=== PATIENT | female | born 1965 | race Caucasian/White ===

== ENCOUNTER 2024-01-16 09:30 | Emergency (ER) | payer MEDICAID, OTHER ==
[~2024-01-16] VITALS: Ht 157.5 cm; Wt 86.0 kg
[2024-01-16] MEDS ORDERED: TOPI-21 PO ×2 (11:16)
[2024-01-16] MEDS ORDERED: TRAZ1TAB10 PO (11:16)
[2024-01-16] MEDS ORDERED: PARO30TA3 PO (11:16)
[2024-01-16] MEDS ORDERED: GABA-284 PO (11:16)
[2024-01-16 11:42] VITALS: BP 122/73; TEMP 97.1; O2SAT 98
== END 2024-01-16 11:51 | disposition home or self-care (01) ==
LOC: M ED 09:30
DX: Z76.0 Encounter for issue of repeat prescription (principal); E66.9 Obesity, unspecified; G47.00 Insomnia, unspecified; F41.9 Anxiety disorder, unspecified; F32.A Depression, unspecified

== ENCOUNTER 2024-01-24 12:24 | Emergency (ER) | payer MEDICAID, OTHER, SELFPAY ==
[~2024-01-24] VITALS: Ht 157.5 cm; Wt 86.4 kg
[~2024-01-24 12:24] MED LIST: GABA-284 PO; PARO30TA3 PO; TOPI-21 PO; TRAZ1TAB10 PO
[2024-01-24] MEDS ORDERED: TRAZ-252 PO (14:25)
[2024-01-24] MEDS ORDERED: PARO30TA3 PO (14:25)
[2024-01-24] MEDS ORDERED: TOPA50TA8 PO (14:25)
[2024-01-24] MEDS ORDERED: GABA-284 PO (14:25)
[2024-01-24 14:33] VITALS: BP 129/87; TEMP 97; O2SAT 99
== END 2024-01-24 14:36 | disposition home or self-care (01) ==
LOC: M ED 12:24
DX: Z76.0 Encounter for issue of repeat prescription (principal); F41.9 Anxiety disorder, unspecified; F32.A Depression, unspecified; F17.200 Nicotine dependence, unspecified, uncomplicated; Z79.899 Other long term (current) drug therapy

== ENCOUNTER → 2024-02-25 | Outpatient (REF) | payer OTHER ==
[~2024-02-25] MED LIST changes: +TOPA50TA8 PO; +TRAZ-252 PO
[2024-02-25 13:46] LABS: Trichomonas vaginalis (AMP) NOT DETECTED (NEGATIVE)
[2024-02-25 14:10] LABS: GC DNA AMPLIFICATION NEGATIVE (NEGATIVE)
[2024-02-25 18:54] LABS: ALBUMIN 3.5 G/DL (3.2-5.2); ALKALINE PHOSPHATASE 83 U/L (46-116); ALT/SGPT 21 U/L (7.0-40); AST/SGOT 11 U/L (<34); BILIRUBIN,TOTAL 0.3 MG/DL (0.3-1.2); BLOOD UREA NITROGEN 17 MG/DL (9-23); CARBON DIOXIDE LEVEL 24 MMOL/L (20-31); CHLORIDE LEVEL 109 MMOL/L (98-107); CHOLESTEROL LEVEL 247 MG/DL (<200); CHOLESTEROL RISK RATIO 3.91 (<5); CREATININE FOR GFR 0.88 MG/DL (0.55-1.30); GLOMERULAR FILTRATION RATE > 60.0 (>45); GLUCOSE, FASTING 84 MG/DL (74-106); HDL CHOLESTEROL 63.1 MG/DL (>40); LDL CHOLESTEROL 159.7 MG/DL (<100); NON-HDL-C 183.9 MG/DL; POTASSIUM SERUM 4.6 MMOL/L (3.5-5.1); SODIUM LEVEL 139 MMOL/L (136-145); THYROID STIMULATING HORMONE 2.342 uIU/ML (0.55-4.78); TOTAL 25(OH) VITAMIN D 18.9 NG/ML (20.0-100.0); TOTAL PROTEIN 6.8 G/DL (5.7-8.2); TRIGLYCERIDES LEVEL 121 MG/DL (<150)
[2024-02-25 19:00] LABS: HEMOGLOBIN A1c 5.1 % (4.0-6.0)
== END ==
LOC: M LAB REF 11:39
PROVIDERS: ATTEND Physician Assistant
DX: Z11.9 Encounter for screening for infectious and parasitic diseases, unspecified (principal); E66.9 Obesity, unspecified

== ENCOUNTER → 2024-04-04 | Outpatient (CLI) | payer OTHER | LOC: M RAD 09:31 | PROVIDERS: ATTEND Physician Assistant | DX: M25.561 Pain in right knee (principal) ==

== ENCOUNTER → 2024-05-08 | Outpatient (CLI) | payer OTHER | LOC: M RAD 14:26 | PROVIDERS: ATTEND Physician Assistant | DX: G43.909 Migraine, unspecified, not intractable, without status migrainosus (principal); R94.02 Abnormal brain scan ==

== ENCOUNTER → 2024-05-29 | Outpatient (CLI) | payer OTHER | LOC: M RAD 10:35 | PROVIDERS: ATTEND Physician Assistant | DX: N94.10 Unspecified dyspareunia (principal) ==

== ENCOUNTER → 2025-04-26 | Outpatient (REF) | payer OTHER ==
[2025-04-26 13:16] LABS: ALT/SGPT 22.0 U/L (7.0-40); AST/SGOT 21.0 U/L (<34); CALCIUM LEVEL 8.6 MG/DL (8.3-10.6); CARBON DIOXIDE LEVEL 26.0 MMOL/L (20-31); CHLORIDE LEVEL 110.0 MMOL/L (98-107); CHOLESTEROL LEVEL 229.0 MG/DL (<200); CHOLESTEROL RISK RATIO 3.04 (<5); CREATININE FOR GFR 0.81 MG/DL (0.55-1.30); GLOMERULAR FILTRATION RATE 82.5 (>45); LDL CHOLESTEROL 139.9 MG/DL (<100); MAGNESIUM LEVEL 2.2 MG/DL (1.8-2.4); NON-HDL-C 153.7 MG/DL; POTASSIUM SERUM 4.9 MMOL/L (3.5-5.1); SODIUM LEVEL 144.0 MMOL/L (136-145); TRIGLYCERIDES LEVEL 69.0 MG/DL (<150)
[2025-04-26 13:17] LABS: TOTAL 25(OH) VITAMIN D 21.7 NG/ML (20.0-100.0)
[2025-04-26 13:23] LABS: ESTIMATED AVERAGE GLUCOSE 100.0 MG/DL (60-110)
== END ==
LOC: M LAB REF 12:22
PROVIDERS: ATTEND Physician Assistant
DX: E78.5 Hyperlipidemia, unspecified (principal); E55.9 Vitamin D deficiency, unspecified; E66.9 Obesity, unspecified; G43.909 Migraine, unspecified, not intractable, without status migrainosus